=== PATIENT | female | born 1995 | race American Indian/Alaskan Native ===

== ENCOUNTER 2018-07-08 15:32 | Emergency (ER) | payer OTHER ==
[~2018-07-08] VITALS: Ht 157.5 cm; Wt 110.0 kg
[2018-07-08 15:43] VITALS: BP 130/77
[2018-07-08] MEDS ORDERED: CYCL-1 PO (17:22)
== END 2018-07-08 17:59 | disposition home or self-care (01) ==
LOC: ER 15:32
DX: S13.4XXA Sprain of ligaments of cervical spine, initial encounter (principal); V49.88XA Car occupant (driver) (passenger) injured in other specified transport accidents, initial encounter; Y93.89 Activity, other specified; Y92.413 State road as the place of occurrence of the external cause; Y99.9 Unspecified external cause status
CPT/HCPCS: 99283

== ENCOUNTER 2020-08-10 15:32 | Emergency (ER) | payer BC, OTHER ==
[~2020-08-10] VITALS: Ht 157.5 cm; Wt 90.0 kg
[~2020-08-10 15:32] MED LIST: CYCL-1 PO
[2020-08-10 17:16] LABS: BASOPHILS # (AUTO) 0.1 X10'3 (0-0.2); BASOPHILS % (AUTO) 1.1 % (0-1); EOSINOPHILS # (AUTO) 0.2 X10'3 (0-0.9); HEMATOCRIT 40.1 % (35.0-45.0); LYMPHOCYTES # (AUTO) 2.7 X10'3 (1.1-4.8); LYMPHOCYTES % (AUTO) 22.3 % (21-51); MEAN CORPUSCULAR HEMOGLOBIN 24.9 PG (27.0-31.0); MEAN CORPUSCULAR HGB CONC 32.3 g/dL (33.0-36.5); MEAN CORPUSCULAR VOLUME 76.9 FL (78-98); MEAN PLATELET VOLUME 9.7 FL (7.4-10.4); MONOCYTES # (AUTO) 0.8 X10'3 (0-0.9); MONOCYTES % (AUTO) 6.2 % (2-12); NEUTROPHILS # (AUTO) 8.3 X10'3 (1.8-7.7); NEUTROPHILS % (AUTO) 68.4 % (42-75); PLATELET COUNT 252 X10'3 (140-440); RED BLOOD COUNT 5.22 X10'6 (4.20-5.60); RED CELL DISTRIBUTION WIDTH 17.4 % (11.5-14.5); WHITE BLOOD COUNT 12.1 X10'3 (4.5-11.0)
[2020-08-10 17:26] LABS: ALANINE AMINOTRANSFERASE 44 U/L (12-78); ALBUMIN/GLOBULIN RATIO 0.9 (1.1-1.5); ALKALINE PHOSPHATASE 103 IU/L (46-116); ANION GAP 12 (8-16); ASPARTATE AMINO TRANSFERASE 43 U/L (10-37); BILIRUBIN,TOTAL 0.4 MG/DL (0.1-1.0); BLOOD UREA NITROGEN 9 MG/DL (7-18); BUN/CREATININE RATIO 10.5 (6.6-38.0); CALCIUM 9.5 MG/DL (8.5-10.1); CHLORIDE 103 MMOL/L (99-107); CREATININE 0.86 MG/DL (0.40-0.90); GLUCOSE 97 MG/DL (70-104); POTASSIUM 3.6 MMOL/L (3.5-5.1); SODIUM 141 MMOL/L (135-145); TOTAL CARBON DIOXIDE 25.9 MMOL/L (24-32); TOTAL PROTEIN 8.5 G/DL (6.4-8.2); eGFR 80 ML/MIN
[2020-08-10 17:32] LABS: HCG SERUM QL NEGATIVE
[2020-08-10] MEDS ORDERED: iohexol 300mg/ml 100ml inj. ONE (17:39)
[2020-08-10 17:47] LABS: MONOTEST NEGATIVE (Neg)
[2020-08-10] MEDS ORDERED: dexamethasone sod phosphate 10mg/ml inj IV STA (18:40)
[2020-08-10] MEDS ORDERED: CLINDAmcin 900mg/NS 50ml IVPB 50 ML IV ONE (18:40)
[2020-08-10] MEDS ORDERED: CLIN300C70 PO (18:42)
[2020-08-10] MEDS ORDERED: PRED20TA PO (18:42)
[2020-08-10] MEDS ORDERED: clindamycin-Cleocin 900mg/D5W 50 ML IV ONE (18:44)
[2020-08-10] MEDS ORDERED: HYDROcodone/acetaminophen 5mg/325mg tablet PO ONE (19:30)
--- NOTE | 2020-08-10 20:14 | NUR ---
PT IS DC READY, REQUESTING TO TALK WITH THE PROVIDER. AYESHA CAMARENA AT BEDSIDE AND PT REPORTS CONTINUED PAIN , THAT THE NORCO GIVEN 40 MIN AGO DID NOT HELP. PAIN IS 10 OUT OF 10. PA TO ORDER CT OF FACE AND HEAD.
--- NOTE | 2020-08-10 20:46 | NUR ---
AYESHA CAMARENA DECIDED NOT TO DO FURTHER IMAGING OF FACE AND UPDATED PT OF THIS. PT TO BE DISCHARGED. PT APPEARED FRUSTRATED AT TIME OF DC AND HAD TEARS AND STATED SHE HAS BEEN TO HER PCP AND THEY HAVE NOT HELPED AND HER SYMPTOMS ARE WORSENING TYAT IS WHY SHE IS IN ER TODAY. PT REPORTS A FRIEND IS PICKING HER UP.
[2020-08-10 20:48] VITALS: BP 111/72
== END 2020-08-10 20:50 | disposition home or self-care (01) ==
LOC: ER 15:34
DX: R59.1 Generalized enlarged lymph nodes (principal); J03.90 Acute tonsillitis, unspecified; Z79.2 Long term (current) use of antibiotics; Z79.899 Other long term (current) drug therapy
CPT/HCPCS: 36415; 70491; 80053; 84703; 85025; 86308; 96365; 96375; 99285; J1100; Q9967; J3490